=== PATIENT | male | born 1940 | race Hispanic/Latino ===

== ENCOUNTER 2017-12-28 11:28 | Emergency (ER) | payer SELFPAY ==
[~2017-12-28] VITALS: Ht 180.3 cm; Wt 81.6 kg
[2017-12-28] MEDS ORDERED: SODIUM CHLORIDE 0.9% 1000ML 1,000 ML IV STA (12:42)
[2017-12-28] MEDS ORDERED: PANTOPRAZOLE 40 MG 10ML VIAL IV ONE (13:30)
== END 2017-12-28 12:30 | disposition left against medical advice (07) ==
LOC: ER 11:28
DX: R11.2 Nausea with vomiting, unspecified (principal); I25.10 Atherosclerotic heart disease of native coronary artery without angina pectoris; E78.5 Hyperlipidemia, unspecified; Z86.73 Personal history of transient ischemic attack (TIA), and cerebral infarction without residual deficits; Z74.01 Bed confinement status
CPT/HCPCS: 51700; 93005; 99283